=== PATIENT | female | born 1990 | race Two or more races ===

== ENCOUNTER 2021-09-26 05:56 | Inpatient (IN) | payer BC ==
[~2021-09-26] VITALS: Ht 165.1 cm; Wt 54.4 kg
[~2021-09-26 05:56] MED LIST: TRAM50TA2 PO
[2021-09-26] MEDS ORDERED: POLYMYXIN B SULFATE 500,000 UNITS ONE (06:35)
[2021-09-26] MEDS ORDERED: LIDOCAINE 1% INJ 50 ML MDV IJ ONE (06:36)
[2021-09-26] MEDS ORDERED: LIDOCAINE 0.5%-EPI 1:200,000 50 ML VIAL ONE (06:36)
[2021-09-26 06:38] VITALS: BP 115/71
[2021-09-26] MEDS ORDERED: ANESTHESIA TRAY IN PYXIS 1 EA TRAY MC ONE (06:51)
[2021-09-26] MEDS ORDERED: TRANEXAMIC ACID 3,000 MG in SODIUM CHLORIDE IRRIG SOLUTION 70 ML IR ONE (07:00)
[2021-09-26] MEDS ORDERED: PROPOFOL 20 ML IV ONE (07:18)
[2021-09-26] MEDS ORDERED: MIDAZOLAM HCL 2 MG/2ML VIAL ONE (07:18)
[2021-09-26] MEDS ORDERED: HYDROMORPHONE INJ 2 MG/ML DISP.SYRIN ONE (07:18)
[2021-09-26] MEDS ORDERED: FENTANYL PF 100MCG/2ML AMPUL ONE ×2 (07:18→08:59)
[2021-09-26] MEDS ORDERED: ROCURONIUM BROMIDE 50 MG/5 ML ONE (07:19)
--- NOTE | 2021-09-26 07:37 | NUR ---
RN NOTE PT NOT IN ROOM. CURRENTLY IN OR.
[2021-09-26] MEDS ORDERED: SCOPOLAMINE PATCH 1 MG/72HR TD ONE (10:00)
[2021-09-26] MEDS ORDERED: HYDROMORPHONE 1 MG/1 ML DISP.SYRIN SQ PRN ×2 (10:00→10:30)
[2021-09-26] MEDS ORDERED: ONDANSETRON HCL/PF 4 MG/2 ML VIAL ONE (10:16)
[2021-09-26] MEDS ORDERED: HYDROMORPHONE 1 MG/1 ML DISP.SYRIN ONE (10:16)
[2021-09-26] MEDS ORDERED: SENOKOT 8.6 MG TABLET PO PRN (10:30)
[2021-09-26] MEDS ORDERED: DRONABINOL (2.5 MG) 2.5 MG CAPSULE PO SCH ×2 (10:30→11:00)
[2021-09-26] MEDS ORDERED: COLACE 250 MG CAPSULE PO PRN (10:30)
[2021-09-26] MEDS ORDERED: DULCOLAX 10 MG/SUPP.RECT RC PRN (10:30)
[2021-09-26] MEDS ORDERED: oxyCODONE IR immediate release 5 MG PO PRN (10:30)
[2021-09-26] MEDS ORDERED: TYLENOL 650 MG TABLET PO PRN (10:30)
[2021-09-26] MEDS ORDERED: diphenhydrAMINE HCL 25 MG CAPSULE PO PRN (10:30)
[2021-09-26] MEDS ORDERED: ONDANSETRON HCL/PF 4 MG/2 ML VIAL IV PRN (10:30)
[2021-09-26] MEDS ORDERED: AMBIEN 5 MG TABLET PO PRN (10:30)
[2021-09-26] MEDS ORDERED: ZOFRAN 4mg/2ML IV PRN (10:30)
[2021-09-26] MEDS ORDERED: HYDROCODONE/APAP 5/325MG TABLET PO PRN (10:30)
[2021-09-26] MEDS ORDERED: MAG HYDROX/AL HYDROX/SIMETH 30 ML UDC PO PRN (10:30)
[2021-09-26] MEDS ORDERED: HYDROMORPHONE 1 MG/1 ML DISP.SYRIN IM/IV/SC PRN (10:59)
[2021-09-26] MEDS ORDERED: IV LR 1000 ML 1,000 ML IV PRN (11:00)
[2021-09-26] MEDS ORDERED: CLONIDINE HCL 0.1 MG TABLET PO PRN (11:00)
[2021-09-26] MEDS: ANCEF 1 G in IV D5W 50 ML IV SCH ×2 (12:32→18:08)
[2021-09-26] MEDS: HYDROCODONE/APAP 10/325MG TABLET PO PRN ×2 (14:11→17:55)
[2021-09-26] MEDS ORDERED: DOCUSATE SODIUM 100 MG CAPSULE PO SCH (17:00)
--- NOTE | 2021-09-26 18:37 | NUR ---
RN NOTE CALLED BY MONTEZ WGAGONER NP FOR DR NEELY. PT IS CLEARED BY [facility]THO FOR D/C. WILL MAKE HOSPITALIST AWARE. WILL CONTINUE TO MONITOR.
--- NOTE | 2021-09-26 20:15 | NUR ---
[facility] TECHNICIAN NOTE RECEIVED PATIENT SITTING UP IN BED. FAMILY AT BEDSIDE. PATIENT IS ALERT AND ORIENTED X 4. ABLE TO MAKE NEEDS KNOWN. COMPLAINTS OF PAIN AND NAUSEA - ADMINISTERED PRN DILAUDID AND ZOFRAN PER ORDERS. DISCHARGE INSTRUCTIONS GIVEN TO PATIENT WITH VERBAL UNDERSTANDING. DISCHARGE ORDER IN PLACE. IV RIGHT HAND #[id number] REMOVED WITH TIP INTACT. SMALL AMOUNT OF BLEEDING NOTED WITH PRESSURE DRESSING APPLIED. ID BAND REMOVED. ALL BELONGINGS ACCOUNTED FOR AND LEFT WITH PATIENT. PATIENT ESCORTED DOWN TO LOBBY VIA WHEELCHAIR AT APPROX. 20:10.
[2021-09-26] MEDS ORDERED: FAMOTIDINE (20 MG) 20 MG TABLET PO SCH (21:00)
[2021-09-27] MEDS ORDERED: ASPIRIN 325 MG TABLET PO SCH (09:00)
== END 2021-09-26 20:10 | disposition home or self-care (01) | DRG 470 ==
LOC: DS 05:56 → MED 05:58
PROVIDERS: ADMIT Nurse Practitioner Acute Care; ATTEND Nurse Practitioner Acute Care
PROC: 0SR90JZ Replacement of Right Hip Joint with Synthetic Substitute, Open Approach (ICD-10-PCS; principal; 2021-09-26)
DX: M16.11 Unilateral primary osteoarthritis, right hip (principal); M87.851 Other osteonecrosis, right femur; D72.829 Elevated white blood cell count, unspecified; F12.90 Cannabis use, unspecified, uncomplicated; Z87.891 Personal history of nicotine dependence
CPT/HCPCS: 84703-TC; 87081-TC; 88305-TC; 88311-TC; 97116-TC; A4217; A6209; A6402; C1776; G0378; J0690; J1100; J1170; J1885; J2250; J2370; J2405; J2704; J2765; J3010; J3490; J7030; J7060; J7120; Q0167